=== PATIENT | female | born 1990 | race African-American/Black ===

== ENCOUNTER 2017-01-26 18:56 | Inpatient (IN) | payer MEDICAID ==
[2017-01-26] VITALS (35 sets, daily range): BP systolic 78–152; BP diastolic 57–98; PULSE 63–129; RESP 18; TEMP 98.5; O2SAT 100
[~2017-01-26] VITALS: Ht 152.4 cm; Wt 89.8 kg
[~2017-01-26 18:56] MED LIST: DIPHTH/TETANUS/ACEL PERTUSSIS (BOOSTER) 0.5 ML VIAL/PFS IM ONE; FLUC150T PO; MACR100C PO; MEASLES, MUMPS, RUBELLA VACCINE 0.5 ML VIAL SQ ONE; NITR-29 PO; PYRI200T4 PO
[2017-01-26] MEDS ORDERED: LACTATED RINGER'S 1000 ML INJ 1,000 ML IV PRN (19:32)
[2017-01-26] MEDS ORDERED: LACTATED RINGER'S 1000 ML INJ 1,000 ML IV SCH (19:32)
--- NOTE | 2017-01-26 19:32 | HHI.HP ---
HPI Chief Complaint Labor pains Date Seen: Jan 26, 2017 Travel History International Travel<30 Days: No Contact w/Intl Traveler<30Days: No Known Affected Area: No History of Present Illness HPI Patient is a 26-year-old black female a 2 at 39 weeks gestation presents complaining of contractions, no bleeding or ruptured membranes. Baby is active heart rate tracing is reactive and she is philip every 3 minutes. She is followed Dr. Hines for care. Patient just got out [facility] today and went into labor Para: 2 : 5 Miscarriage: 2 History Social History Narrative Social History just got out of [facility] today Alcohol Use: No Tobacco Use: No Substance Abuse: No Allergies-Medications (Allergen,Severity, Reaction): Coded Allergies: No Known Allergies (Verified , 09/14/16) Home Meds Active Scripts Phenazopyridine Hcl (Pyridium)200 Mg [id number] Mg PO Q8 PRN (BLADDER SPASM) #6 TAB Prov:Letty Nam 08/17/16 Nitrofurantoin Macrocrystal (Nitrofurantoin Macrocryst)100 Mg Non083 Mg PO BIDPC #14 CAP Prov:Letty Nam 08/17/16 Nitrofurantoin Monohyd Macro (Macrobid)100 Mg [id number] Mg PO BID 7 Days Prov:Aparna Lyn 01/15/16 Fluconazole 150 Mg Uuu655 Mg PO ONCE #1 TAB Prov:Aparna Lyn 01/15/16 Review of Systems General / Constitutional: No: Fever, Weight Gain, Chills, Other Eyes: No: Diploplia, Blurred Vision, Visual changes, Pain, Photophobia HENT: No: Headaches, Vertigo, Lightheadedness Cardiovascular: No: Irregular Rhythm, Chest Pain or Discomfort, Palpitations, Tachycardia, Syncope, Varicosities, Edema, Cyanosis Respiratory: No: Cough, Short of Breath, Other Gastrointestinal: No: Nausea, Vomiting, Diarrhea Genitourinary: No: Decreased Urinary Output, Oliguria Musculoskeletal: No: Limited ROM, Weakness, Cramping, Edema, Pain Skin: No Rash, No Itching, No Dryness, No Lumps, No Change in Pigmentation, No Change in Nails, No Alopecia, No Lesions Neurologic: No: Weakness, Dizziness, Syncope, Focal Abnormalities, Coordination Problem, Headache, Slurred Speech, Seizures Psychiatric: No: Depression, Suicidal Ideations, Homicidal Ideation Endocrine: No: Heat Intolerance, Cold Intolerance, Polydipsia, Polyuria, Other Physical Exam Narrative GENERAL: Well-nourished, well-developed patient. SKIN: Warm and dry. HEAD: Normocephalic and atraumatic. EYES: No scleral icterus. No injection or drainage. ENT: No nasal drainage noted. Mucous membranes pink. Airway patent. NECK: Supple, trachea midline. No JVD. CARDIOVASCULAR: Regular rate and rhythm without murmurs, gallops, or rubs. RESPIRATORY: Breath sounds equal bilaterally. No accessory muscle use. BREASTS: Bilateral exam showed no masses , no retractions, no nipple discharge. ABDOMEN/GI: Abdomen soft, non-tender, bowel sounds present, no rebound, no guarding Gravid to [-39] weeks size Fundal Height: [39-] GENITOURINARY: External Genitalia: intact and normal in appearance BUS glands: [-] Cervix: [-] Dilatation: [5-] Effacement: [-80] Station: [-1] Presentation: [vtx-] Membranes: [intact ] Uterine Contractions: [reg-] FHT's: Category: [1-] Baseline: [-144] Reactive: [-yes] Variability: [mod-] Decels: [none-] EXTREMITIES: No cyanosis or edema. BACK: Nontender without obvious deformity. No CVA tenderness. NEUROLOGICAL: Awake and alert. Motor and sensory grossly within normal limits. Five out of 5 muscle strength in all muscle groups. Normal speech. Data Data Labs + GBS Assessment/Plan Assessment and Plan Patient is 26-year-old black female A2 at [address] Hines. Patient presents with contractions regular every 3 minutes and intact membranes. The cervix 5 cm 80% and -1 station vertex. heart rate tracing is reactive and admit for labor and anticipate vaginal delivery ,+ GBS will cover with IV pen Theodore Resendez II, MD Jan 26, 2017 19:31
[2017-01-26] MEDS ORDERED: SODIUM CHLORID 0.9% 500 ML INJ 500 ML IV PRN (19:45)
[2017-01-26] MEDS ORDERED: LIDOCAINE HCL 1% 50 ML VIAL I-DERMAL PRN (19:45)
[2017-01-26] MEDS ORDERED: LIDOCAINE HCL 1% 50 ML VIAL INFIL PRN (19:45)
[2017-01-26] MEDS ORDERED: OXYTOCIN 30 UNITS-500ML PREMIX 500 ML IV ONE (19:45)
[2017-01-26] MEDS ORDERED: MINERAL OIL 10 ML VIAL TOPICAL PRN (19:45)
[2017-01-26] MEDS ORDERED: CITRIC ACID-SODIUM CITRATE LIQ 30 ML UDC PO SCH (19:45)
[2017-01-26] MEDS ORDERED: SODIUM CHLOR 0.9% 1000 ML INJ 1,000 ML IV PRN (19:52)
[2017-01-26] MEDS ORDERED: PENICILLIN G POTASSIUM INJ 5,000,000 UNITS in SODIUM CHLORIDE 0.9% INJ 100 ML IV ONE (20:00)
[2017-01-26] MEDS ORDERED: fentaNYL 2MCG-BUPIV 0.125% INJ 100 ML ONE (20:25)
[2017-01-26 20:27] LABS: AUTOMATED NEUTROPHIL # 6.8 TH/MM3 (1.8-7.7); BASOPHIL % 0.1 % (0.0-2.0); EOSINOPHIL % 0.3 % (0.0-4.0); HEMATOCRIT 36.6 % (35.0-46.0); HEMO FLAGS DIFF FINAL; LYMPH % 14.9 % (9.0-44.0); LYMPHOCYTE # 1.4 TH/MM3 (1.0-4.8); MEAN CORPUSCULAR HEMOGLOBIN 29.1 PG (27.0-34.0); MEAN CORPUSCULAR HGB CONC 33.5 % (32.0-36.0); MONO % 10.2 % (0.0-8.0); NEUT % 74.5 % (16.0-70.0); PLATELET COUNT 121 TH/MM3 (150-450); RED CELL DISTRIBUTION WIDTH 14.6 % (11.6-17.2); WHITE BLOOD COUNT 9.1 TH/MM3 (4.0-11.0)
[2017-01-26] MEDS ORDERED: PREN29TA PO (20:29)
[2017-01-26] MEDS ORDERED: ZANT150T2 PO (20:31)
[2017-01-26] MEDS ORDERED: FIBE625T10 PO (20:31)
[2017-01-26] MEDS ORDERED: ACET1CAP18 PO (20:34)
[2017-01-26] MEDS ORDERED: FERR65TA PO (20:36)
[2017-01-26] MEDS ORDERED: ePHEDrine/NS 25 MG/5 ML SYR ONE (20:52)
[2017-01-26] MEDS ORDERED: ePHEDrine/NS 25 MG/5 ML SYR IV PRN (21:15)
[2017-01-26] MEDS ORDERED: fentaNYL 2MCG-BUPIV 0.125% 100 ML EPIDURAL SCH (21:15)
[2017-01-26] MEDS ORDERED: NO SYSTEM NARCOTICS XX PRN (21:15)
[2017-01-26] MEDS ORDERED: DO NOT ADMINISTER ANTICOAGULANTS XX PRN (21:15)
--- NOTE | 2017-01-26 23:07 | PD.OB.DELI ---
Anesthesia: Epidural Episiotomy: None Vaginal Delivery: Vacuum Presentation: Occiput anterior Nuchal Cord: None Delayed cord clamping (45 sec): Yes Infant: Male One Minute : 7 Five Minute : 9 Weight: 8 3 Infant Care: Suctioned, Spontaneous crying, Blow-by O2 delivered Placenta: Spontaneous delivery, Intact, 3 vessel cord Laceration: No lacerations Inge Hines MD Jan 26, 2017 23:07
[2017-01-26 23:10] LABS: BLOOD, URINE MOD (NEG); GLUCOSE,URINE NEG (NEG); KETONE, URINE NEG (NEG); MUCUS URINE FEW /lpf (OCC); NITRITE,URINE NEG (NEG); SQUAMOUS EPITHELIAL CELL URINE <1 /hpf (0-5); URINE COLOR YELLOW (YELLW/STRAW)
[2017-01-26 23:11] LABS: COMMENT (UR) CULT NOT INDICATED; CULTURE IF INDICATED CULT NOT INDICATED
[2017-01-26] MEDS ORDERED: ALUMINUM/MAGNESIUM/SIMETH 30 ML CUP PO PRN (23:15)
[2017-01-26] MEDS ORDERED: WITCH HAZEL 50%/GLYCERIN 12.5% 40 PAD JAR TOPICAL PRN (23:15)
[2017-01-26] MEDS: IBUPROFEN 600 MG TAB PO PRN (23:15)
[2017-01-26] MEDS ORDERED: ZOLPIDEM TARTRATE 5 MG TAB PO PRN (23:15)
[2017-01-26] MEDS ORDERED: ACETAMINOPHEN 325 MG TAB PO PRN (23:15)
[2017-01-26] MEDS ORDERED: ONDANSETRON ODT 4 MG TAB PO PRN (23:15)
[2017-01-26] MEDS ORDERED: SODIUM CHLORIDE 0.9% FLUSH 5 ML FLUSH IV PRN (23:15)
[2017-01-26] MEDS ORDERED: BENZOCAINE 20% TOPICAL SPRAY 60 ML CAN TOPICAL PRN (23:15)
[2017-01-26] MEDS ORDERED: DOCUSATE SODIUM 50 MG/SENNA 8.6 MG TAB PO PRN (23:15)
[2017-01-27] VITALS (7 sets, daily range): BP systolic 103–117; BP diastolic 54–69; PULSE 67–83; RESP 18; TEMP 97.9–98.5
[2017-01-27] MEDS ORDERED: PENICILLIN G POTASSIUM INJ 2,500,000 UNITS in SODIUM CHLORIDE 0.9% INJ 100 ML IV SCH ×2
[2017-01-27 01:57] LABS: AMPHETAMINE, URINE NEG (NEG); BARBITURATES, URINE NEG (NEG); COCAINE, URINE NEG (NEG)
[2017-01-27] MEDS: IBUPROFEN 600 MG TAB PO PRN ×3 (06:22→21:32)
[2017-01-27] MEDS ORDERED: SODIUM CHLORIDE 0.9% FLUSH 5 ML FLUSH IV SCH (09:00)
--- NOTE | 2017-01-27 11:49 | HHI.OB ---
Subjective Post Day: 1 Remarks PPD#1; doing well Objective Vitals/I&O Vital Signs Date Time Temp Pulse Resp B/P Pulse Ox O2 Delivery O2 Flow Rate FiO2 01/27/17 07:50 97.9 67 18 01/27/17 07:50 103/54 01/27/17 01:25 71 18 108/69 01/27/17 01:25 98.0 01/27/17 00:30 83 114/68 01/27/17 00:15 76 114/68 01/27/17 00:05 18 01/27/17 00:05 18 01/27/17 00:00 68 117/65 01/26/17 23:55 18 01/26/17 23:45 74 117/68 01/26/17 23:31 83 111/65 01/26/17 23:21 83 115/58 01/26/17 23:21 98.5 18 01/26/17 22:55 18 01/26/17 22:33 81 113/69 01/26/17 22:26 63 143/65 01/26/17 22:16 129 152/75 01/26/17 22:11 112 136/98 01/26/17 22:10 120 01/26/17 22:10 100 01/26/17 22:05 100 01/26/17 22:05 86 01/26/17 22:05 118/74 01/26/17 22:01 104 113/57 01/26/17 22:00 99 01/26/17 22:00 100 01/26/17 21:56 79 113/68 01/26/17 21:55 112 01/26/17 21:55 100 01/26/17 21:50 108/74 01/26/17 21:50 100 01/26/17 21:50 107 01/26/17 21:45 67 01/26/17 21:45 121/67 01/26/17 21:45 100 01/26/17 21:40 87 01/26/17 21:40 113/71 01/26/17 21:40 100 01/26/17 21:36 84 115/65 01/26/17 21:35 87 01/26/17 21:35 100 01/26/17 21:30 94 01/26/17 21:30 100 01/26/17 21:30 118/72 01/26/17 21:25 108/69 01/26/17 21:25 100 01/26/17 21:25 68 01/26/17 21:20 79 01/26/17 21:20 78/62 01/26/17 21:20 100 01/26/17 21:15 112/59 01/26/17 21:15 109 01/26/17 21:15 100 01/26/17 21:10 100 01/26/17 21:10 92 01/26/17 21:10 88 134/62 01/26/17 21:05 100 01/26/17 21:05 83 115/90 01/26/17 21:01 72 117/64 01/26/17 21:00 89 01/26/17 21:00 100 01/26/17 20:55 100 01/26/17 20:55 74 115/64 01/26/17 20:54 68 113/64 01/26/17 20:50 66 93/75 01/26/17 20:50 100 01/26/17 20:45 73 125/64 01/26/17 20:45 100 01/26/17 20:41 77 115/59 01/26/17 20:40 72 01/26/17 20:40 100 01/26/17 20:39 71 128/60 Objective Remarks GENERAL: Well-nourished, well-developed patient. CARDIOVASCULAR: Regular rate and rhythm without murmurs, gallops, or rubs. RESPIRATORY: Breath sounds equal bilaterally. No accessory muscle use. ABDOMEN/GI: Abdomen soft, non-tender. Fundus: Firm, non-tender at umbilicus. GENITOURINARY: Light to moderate bleeding. EXTREMITIES: No cyanosis or edema, non-tender, without signs of DVT. Medications and IVs Current Medications Medications (Trade) Dose Ordered Sig/Joleen Route Start Time Stop Time Status Last Admin Miscellaneous Information No systemic narcotics to be given except... UNSCH PRN XX 01/26/17 21:15 01/27/17 21:14 Miscellaneous Information DO NOT ADMINISTER ANY ANTICOAGUL... UNSCH PRN XX 01/26/17 21:15 01/27/17 21:14 (NS Flush) 2 ml BID IV 01/27/17 09:00 (NS Flush) 2 ml UNSCH PRN IV 01/26/17 23:15 (Tylenol) 650 mg Q4H PRN PO 01/26/17 23:15 (Motrin) 600 mg Q6H PRN PO 01/26/17 23:15 01/27/17 06:22 (Americaine 20% Top Spr) 1 spray Q4H PRN TOPICAL 01/26/17 23:15 (Tucks Pads) 1 applic QID PRN TOPICAL 01/26/17 23:15 (Amanda-Colace) 2 tab Q12H PRN PO 01/26/17 23:15 (Ambien) 5 mg HS PRN PO 01/26/17 23:15 (Mag-Al Plus Susp Liq) 15 ml Q8H PRN PO 01/26/17 23:15 (Zofran Odt) 4 mg Q6H PRN PO 01/26/17 23:15 Assessment/Plan Assessment and Plan PPD#1, Stable, plan discharge for thur., Discharge Planning Does not meet criteria Micah Steiner MD Jan 27, 2017 11:49
[2017-01-27] MEDS ORDERED: IBUP-232 PO (13:09)
--- NOTE | 2017-01-27 13:10 | HHI.DCPOC ---
Discharge Care Plan Diagnosis: (1) (spontaneous vaginal delivery) Your Health Problems Are: Vaginal delivery Report Symptoms to Your Doctor -Temperate above 100.5 degrees -Redness, of incision or excessive or foul smelling drainage -Unusual pain or calf pain -Increased vaginal bleeding -Painful or difficulty urinating -Feelings of extreme sadness or anxiety after 2 weeks Goals to Promote Your Health * To prevent worsening of your condition and complications * To maintain your health at the optimal level Directions to Meet Your Goals Take your medications as prescribed Follow your dietary instruction Follow activity as directed Ensure plenty of rest for recovery Drink fluids for hydration Keep your appointments as scheduled Take your immunizations and boosters as scheduled If your symptoms worsen call your PCP, if no PCP go to Urgent Care Center or Emergency Room Smoking is Dangerous to Your Health. Avoid second hand smoke Call the 24-hour crisis hotline for domestic abuse at Lucina Wick MD Jan 27, 2017 13:10
[2017-01-28 07:32] VITALS: BP 102/66; PULSE 78; RESP 18; TEMP 97.4
[2017-01-28] MEDS: IBUPROFEN 600 MG TAB PO PRN (07:32)
--- NOTE | 2017-01-28 07:59 | HHI.OB ---
Subjective Post Day: 2 Remarks doing great BFA desires discharge no substance issues Objective Vitals/I&O Vital Signs Date Time Temp Pulse Resp B/P Pulse Ox O2 Delivery O2 Flow Rate FiO2 01/27/17 21:30 98.5 76 18 112/67 Objective Remarks GENERAL: Well-nourished, well-developed patient. CARDIOVASCULAR: Regular rate and rhythm without murmurs, gallops, or rubs. RESPIRATORY: Breath sounds equal bilaterally. No accessory muscle use. ABDOMEN/GI: Abdomen soft, non-tender. Fundus: Firm, non-tender at umbilicus. GENITOURINARY: Light to moderate bleeding. EXTREMITIES: No cyanosis or edema, non-tender, without signs of DVT. Medications and IVs Current Medications Medications (Trade) Dose Ordered Sig/Joleen Route Start Time Stop Time Status Last Admin (NS Flush) 2 ml BID IV 01/27/17 09:00 (NS Flush) 2 ml UNSCH PRN IV 01/26/17 23:15 (Tylenol) 650 mg Q4H PRN PO 01/26/17 23:15 (Motrin) 600 mg Q6H PRN PO 01/26/17 23:15 01/28/17 07:32 (Americaine 20% Top Spr) 1 spray Q4H PRN TOPICAL 01/26/17 23:15 (Tucks Pads) 1 applic QID PRN TOPICAL 01/26/17 23:15 (Amanda-Colace) 2 tab Q12H PRN PO 01/26/17 23:15 01/27/17 21:31 (Ambien) 5 mg HS PRN PO 01/26/17 23:15 (Mag-Al Plus Susp Liq) 15 ml Q8H PRN PO 01/26/17 23:15 (Zofran Odt) 4 mg Q6H PRN PO 01/26/17 23:15 Assessment/Plan Assessment and Plan PPD#2, Stable, for discharge this am will have paragard in office RTO 2 weeks., Discharge Planning Does not meet criteria Inge Hines MD Jan 28, 2017 07:59
[2017-02-03 13:56] LABS: HEROIN (6-ACETYLMORPHINE) UR NEG (NEG); OBMETHADONE UR NEG (NEG); PHENCYCLIDINE URINE NEG (NEG)
[2017-02-03 13:57] LABS: BATH SALTS (MDPV) UR NEG (NEG); ECSTASY (MDMA) UR NEG (NEG); K2 SPICE UR NEG (NEG); OXYCODONE (PERCODAN) NEG (NEG)
== END 2017-01-28 13:29 | disposition home or self-care (01) | DRG 775 ==
LOC: HOBED 18:56 → H2EA 19:33 → H1EA 01-27 00:58
PROVIDERS: ADMIT Obstetrics & Gynecology; ATTEND Obstetrics & Gynecology
PROC: 10D07Z6 Extraction of Products of Conception, Vacuum, Via Natural or Artificial Opening (ICD-10-PCS; principal; 2017-01-26)
PROC: 3E0R3CZ (ICD-10-PCS; 2017-01-26)
PROC: 00HU33Z Insertion of Infusion Device into Spinal Canal, Percutaneous Approach (ICD-10-PCS; 2017-01-26)
DX: O80 Encounter for full-term uncomplicated delivery (principal); O99.824 Streptococcus B carrier state complicating childbirth; Z37.0 Single live birth; Z3A.39 39 weeks gestation of pregnancy
CPT/HCPCS: 80307; 81001; 85025; 86900; 86901; 99285; G0481; J2540; J7120

== ENCOUNTER 2017-07-06 18:40 | Emergency (ER) | payer MEDICAID ==
[~2017-07-06] VITALS: Ht 170.2 cm; Wt 65.0 kg
[~2017-07-06 18:40] MED LIST changes: +ACET1CAP18 PO; -DIPHTH/TETANUS/ACEL PERTUSSIS (BOOSTER) 0.5 ML VIAL/PFS IM ONE; +FERR65TA PO; +FIBE625T10 PO; -FLUC150T PO; +IBUP-232 PO; -MACR100C PO; -MEASLES, MUMPS, RUBELLA VACCINE 0.5 ML VIAL SQ ONE; -NITR-29 PO; +PREN29TA PO; -PYRI200T4 PO; +ZANT150T2 PO
[2017-07-06 18:43] VITALS: BP 144/75; PULSE 46; RESP 14; TEMP 98.8; O2SAT 100
--- NOTE | 2017-07-06 19:26 | PD ---
Physical Exam Time Seen by Provider: 19:25 Narrative 27 y/o female with n/v for one week. on pcn for uti, dx at an urgent care. Vital signs reviewed. Seen at triage desk. Awaiting bed placement. Data Data Last Documented VS Vital Signs Date Time Temp Pulse Resp B/P Pulse Ox O2 Delivery O2 Flow Rate FiO2 07/06/17 18:43 98.8 46 14 144/75 100 MDM Medical Record Reviewed: Yes Supervised Visit with FATMATA: Johnathan Plaza Jul 06, 2017 19:25
== END 2017-07-06 21:36 | disposition left against medical advice (07) ==
LOC: NED 18:40
DX: R11.2 Nausea with vomiting, unspecified (principal); N39.0 Urinary tract infection, site not specified; Z53.21 Procedure and treatment not carried out due to patient leaving prior to being seen by health care provider
CPT/HCPCS: 99281

== ENCOUNTER 2017-08-08 09:47 | Emergency (ER) | payer MEDICAID ==
[2017-08-08 09:51] VITALS: BP 129/79; PULSE 84; RESP 20; TEMP 98.7; O2SAT 98
== END 2017-08-08 10:19 | disposition left against medical advice (07) ==
LOC: NED 09:47
DX: J11.1 Influenza due to unidentified influenza virus with other respiratory manifestations (principal)
CPT/HCPCS: 99281